=== PATIENT | male | born 1965 | race Caucasian/White ===

== ENCOUNTER → 2016-08-14 | Outpatient (CLI) | payer MEDICARE, OTHER | LOC: US 08-13 16:00 | DX: R07.0 Pain in throat (principal); E04.1 Nontoxic single thyroid nodule | CPT/HCPCS: 76536 ==

== ENCOUNTER 2020-05-10 17:59 | Emergency (ER) | payer MEDICARE, OTHER ==
[~2020-05-10 17:59] MED LIST: DICLOFENAC SODI50 MG PO; ECOTRIN81 MG PO; FLOMAX 0.4 MG0.4 MG PO; IMDUR ER TAB 3030 MG PO; LEVEMIR100 UNIT/1 SQ; LIPITOR TAB 2020 MG PO; LOPRESSOR 25 MG25 MG PO; MELATONIN3 MG PO; METFORMIN HCL1000 MG PO; NITROGLYCERIN0.4 MG SL; PROAIR HFA8.5 GM INH
== END 2020-05-10 20:00 | disposition left against medical advice (07) ==
LOC: ER1 17:59
DX: R51.9 Headache, unspecified (principal); Z53.21 Procedure and treatment not carried out due to patient leaving prior to being seen by health care provider

== ENCOUNTER → 2020-08-30 | Outpatient (CLI) | payer MEDICARE, OTHER | LOC: ECHO 07-19 11:00 → NM 07-19 13:00 → ECHO 07-25 09:00 | DX: I20.9 Angina pectoris, unspecified (principal); I25.41 Coronary artery aneurysm | CPT/HCPCS: 78452; 93017; A9502; J2785 ==